=== PATIENT | male | born 1980 | race Caucasian/White ===

== ENCOUNTER 2017-11-16 07:35 | Emergency (ER) | payer OTHER ==
[~2017-11-16] VITALS: Ht 7010 cm; Wt 2.9 kg
[2017-11-16] MEDS ORDERED: Motrin,Rufen800 MG PO (09:21)
[2017-11-16] MEDS ORDERED: IBU800 MG PO (09:30)
== END 2017-11-16 09:31 | disposition home or self-care (01) ==
LOC: ED 07:35
DX: S20.212A Contusion of left front wall of thorax, initial encounter (principal); R10.30 Lower abdominal pain, unspecified; V47.5XXA Car driver injured in collision with fixed or stationary object in traffic accident, initial encounter; Y93.89 Activity, other specified; Y92.89 Other specified places as the place of occurrence of the external cause; Y99.8 Other external cause status

== ENCOUNTER → 2017-12-16 | Outpatient (CLI) | payer BC ==
[~2017-12-16] MED LIST: IBU800 MG PO; Motrin,Rufen800 MG PO
== END | disposition home or self-care (01) ==
LOC: CT 12-14 10:00
DX: S62.312A Displaced fracture of base of third metacarpal bone, right hand, initial encounter for closed fracture (principal); S62.344A Nondisplaced fracture of base of fourth metacarpal bone, right hand, initial encounter for closed fracture; X58.XXXA Exposure to other specified factors, initial encounter; Y93.89 Activity, other specified; Y92.89 Other specified places as the place of occurrence of the external cause; Y99.8 Other external cause status

== ENCOUNTER 2018-03-08 11:38 | Emergency (ER) | payer BC ==
[~2018-03-08] VITALS: Ht 187.9 cm; Wt 108.9 kg
[2018-03-08] MEDS ORDERED: CHLORZOXAZONE500 M2 PO (11:49)
[2018-03-08] MEDS ORDERED: PREDNISONE10 MG PO (11:49)
== END 2018-03-08 12:06 | disposition home or self-care (01) ==
LOC: ED 11:38
DX: S13.8XXA Sprain of joints and ligaments of other parts of neck, initial encounter (principal); R03.0 Elevated blood-pressure reading, without diagnosis of hypertension; X50.1XXA Overexertion from prolonged static or awkward postures, initial encounter; Y93.75 Activity, martial arts; Y92.89 Other specified places as the place of occurrence of the external cause; Y99.9 Unspecified external cause status

== ENCOUNTER 2018-03-18 17:51 | Emergency (ER) | payer BC ==
[~2018-03-18] VITALS: Ht 187.9 cm; Wt 108.9 kg
[~2018-03-18 17:51] MED LIST changes: +CHLORZOXAZONE500 M2 PO; +PREDNISONE10 MG PO
[2018-03-18] MEDS ORDERED: PREDNISONE10 MG PO (18:09)
[2018-03-18] MEDS ORDERED: ROBAXIN500 M1 PO (18:09)
== END 2018-03-18 18:18 | disposition home or self-care (01) ==
LOC: ED 17:51
DX: M54.12 Radiculopathy, cervical region (principal)

== ENCOUNTER 2018-11-07 12:12 | Emergency (ER) | payer SELFPAY ==
[~2018-11-07] VITALS: Ht 187.9 cm; Wt 102.1 kg
[~2018-11-07 12:12] MED LIST changes: +CYCLOBENZAPRINE10 MG PO; +MEDROL DOSEPAK4 MG PO; +ROBAXIN500 M1 PO; +TRAMADOL HCL50 MG PO
[2018-11-07] MEDS ORDERED: PERCOCET 5-3251 EACH PO (14:11)
[2018-11-07] MEDS ORDERED: CYCLOBENZAPRINE10 MG PO (14:11)
[2018-11-07] MEDS ORDERED: PREDNISONE50 MG PO (14:11)
[2018-12-01] MEDS ORDERED: Motrin,Rufen800 MG PO (09:42)
== END 2018-11-07 14:15 | disposition home or self-care (01) ==
LOC: ED 12:12
DX: S39.012A Strain of muscle, fascia and tendon of lower back, initial encounter (principal); M51.36 Other intervertebral disc degeneration, lumbar region; X50.1XXA Overexertion from prolonged static or awkward postures, initial encounter; Y93.89 Activity, other specified; Y92.89 Other specified places as the place of occurrence of the external cause; Y99.8 Other external cause status

== ENCOUNTER 2019-12-18 11:39 | Emergency (ER) | payer OTHER ==
[~2019-12-18] VITALS: Ht 187.9 cm; Wt 104.3 kg
[~2019-12-18 11:39] MED LIST changes: +PERCOCET 5-3251 EACH PO; +PREDNISONE50 MG PO
[2019-12-18] MEDS ORDERED: TYLENOL325 M1 PO (12:11)
[2019-12-18] MEDS ORDERED: VALTREX1000 MG PO (12:11)
[2019-12-18] MEDS ORDERED: TRAMADOL HCL50 MG PO (12:14)
== END 2019-12-18 12:35 | disposition home or self-care (01) ==
LOC: ED 11:39
DX: B02.9 Zoster without complications (principal); R07.89 Other chest pain

== ENCOUNTER 2020-09-06 11:49 | Emergency (ER) | payer OTHER ==
[~2020-09-06] VITALS: Ht 187.9 cm; Wt 113.4 kg
[~2020-09-06 11:49] MED LIST changes: +TYLENOL325 M1 PO; +VALTREX1000 MG PO
[2020-09-06] MEDS ORDERED: PREDNISONE50 MG PO (12:08)
[2020-09-06] MEDS ORDERED: CYCLOBENZAPRINE10 MG PO (12:08)
[2020-09-06] MEDS ORDERED: ULTRAM50 MG PO (12:08)
== END 2020-09-06 12:59 | disposition home or self-care (01) ==
LOC: ED 11:49
DX: M54.5 Low back pain (principal); M19.90 Unspecified osteoarthritis, unspecified site; Z79.899 Other long term (current) drug therapy

== ENCOUNTER 2021-03-18 06:23 | Emergency (ER) | payer OTHER ==
[~2021-03-18] VITALS: Ht 185.4 cm; Wt 106.6 kg
[~2021-03-18 06:23] MED LIST changes: +ULTRAM50 MG PO
[2021-03-18] MEDS ORDERED: NAPROXEN250 MG PO (08:28)
[2021-03-18] MEDS ORDERED: TYLENOL325 M1 PO (08:28)
== END 2021-03-18 09:39 | disposition home or self-care (01) ==
LOC: ED 06:23
DX: R51.9 Headache, unspecified (principal); Z20.822 Contact with and (suspected) exposure to COVID-19; R50.9 Fever, unspecified; J02.9 Acute pharyngitis, unspecified; R09.81 Nasal congestion; Z79.899 Other long term (current) drug therapy

== ENCOUNTER 2022-10-19 07:05 | Emergency (ER) | payer OTHER ==
[~2022-10-19] VITALS: Ht 187.9 cm; Wt 98.9 kg
[~2022-10-19 07:05] MED LIST changes: +NAPROXEN250 MG PO
[2022-10-19] MEDS ORDERED: CYCLOBENZAPRINE10 MG PO (08:33)
[2022-10-19] MEDS ORDERED: PREDNISONE20 M1 PO (08:33)
[2022-10-19] MEDS ORDERED: TRAMADOL HCL50 MG PO (08:35)
== END 2022-10-19 08:31 | disposition home or self-care (01) ==
LOC: ED 07:05
DX: M54.50 Low back pain, unspecified (principal)

== ENCOUNTER 2022-10-22 14:48 | Emergency (ER) | payer OTHER ==
[~2022-10-22] VITALS: Wt 97.5 kg
[~2022-10-22 14:48] MED LIST changes: +PREDNISONE20 M1 PO
== END 2022-10-22 21:05 | disposition home or self-care (01) ==
LOC: ED 14:48
DX: M51.36 Other intervertebral disc degeneration, lumbar region (principal); G89.29 Other chronic pain; M54.50 Low back pain, unspecified

== ENCOUNTER 2023-01-22 09:48 | Emergency (ER) | payer OTHER ==
[~2023-01-22] VITALS: Wt 97.5 kg
[2023-01-22] MEDS ORDERED: PREDNISONE50 MG PO (10:36)
[2023-01-22] MEDS ORDERED: CYCLOBENZAPRINE10 MG PO (10:36)
[2023-01-22] MEDS ORDERED: TRAMADOL HCL50 MG PO (10:36)
== END 2023-01-22 10:50 | disposition home or self-care (01) ==
LOC: ED 09:48
DX: S39.012A Strain of muscle, fascia and tendon of lower back, initial encounter (principal); Z79.899 Other long term (current) drug therapy; X58.XXXA Exposure to other specified factors, initial encounter; Y93.89 Activity, other specified; Y92.89 Other specified places as the place of occurrence of the external cause; Y99.8 Other external cause status

== ENCOUNTER 2023-03-11 14:44 | Emergency (ER) | payer OTHER ==
[~2023-03-11] VITALS: Ht 187.9 cm; Wt 99.8 kg
[2023-03-11] MEDS ORDERED: CYCLOBENZAPRINE10 MG PO (17:17)
== END 2023-03-11 17:37 | disposition home or self-care (01) ==
LOC: ED 14:44
DX: S16.1XXA Strain of muscle, fascia and tendon at neck level, initial encounter (principal); M62.838 Other muscle spasm; Z79.899 Other long term (current) drug therapy; X58.XXXA Exposure to other specified factors, initial encounter; Y93.89 Activity, other specified; Y92.89 Other specified places as the place of occurrence of the external cause; Y99.8 Other external cause status

== ENCOUNTER 2023-12-07 06:03 | Emergency (ER) | payer OTHER ==
[~2023-12-07] VITALS: Wt 102.1 kg
[2023-12-07] MEDS ORDERED: Ketorolac Tromethamine 60 MG/2 ML VIAL IM ONE (07:20)
[2023-12-07] MEDS ORDERED: NAPROSYN500 MG PO (07:30)
== END 2023-12-07 14:25 | disposition home or self-care (01) ==
LOC: ED 06:03
DX: S66.911A Strain of unspecified muscle, fascia and tendon at wrist and hand level, right hand, initial encounter (principal); W23.0XXA Caught, crushed, jammed, or pinched between moving objects, initial encounter; Y93.89 Activity, other specified; Y92.009 Unspecified place in unspecified non-institutional (private) residence as the place of occurrence of the external cause; Y99.8 Other external cause status

== ENCOUNTER 2024-04-12 08:11 | Emergency (ER) | payer OTHER ==
[~2024-04-12] VITALS: Ht 182.8 cm; Wt 90.7 kg
[~2024-04-12 08:11] MED LIST changes: +NAPROSYN500 MG PO
[2024-04-12] MEDS ORDERED: Acetaminophen/Oxycodone 5 MG/325 MG TABLET PO ONE (08:15)
[2024-04-12] MEDS ORDERED: MELOXICAM15 MG PO (08:27)
== END 2024-04-12 08:44 | disposition home or self-care (01) ==
LOC: ED 08:11
DX: S63.614A Unspecified sprain of right ring finger, initial encounter (principal); X58.XXXA Exposure to other specified factors, initial encounter; Y93.89 Activity, other specified; Y92.89 Other specified places as the place of occurrence of the external cause; Y99.8 Other external cause status

== ENCOUNTER 2024-06-21 13:04 | Emergency (ER) | payer OTHER ==
[~2024-06-21] VITALS: Ht 187.9 cm; Wt 97.5 kg
[~2024-06-21 13:04] MED LIST changes: +MELOXICAM15 MG PO
[2024-06-21] MEDS ORDERED: CYCLOBENZAPRINE5 M3 PO (13:50)
[2024-06-21] MEDS ORDERED: Ketorolac Tromethamine 30 MG/ML VIAL IM ONE (13:55)
[2024-06-21] MEDS ORDERED: methylPREDNISolone sod succ 125 MG VIAL IM ONE (13:55)
== END 2024-06-21 13:57 | disposition home or self-care (01) ==
LOC: ED 13:04
DX: M62.830 Muscle spasm of back (principal)

== ENCOUNTER 2024-10-26 13:20 | Emergency (ER) | payer MEDICAID ==
[~2024-10-26] VITALS: Ht 187.9 cm; Wt 97.5 kg
[~2024-10-26 13:20] MED LIST changes: +CYCLOBENZAPRINE5 M3 PO
[2024-10-26] MEDS ORDERED: Lidocaine Hydrochloride 2% 10 ML AMP SC ONE (13:35)
[2024-10-26] MEDS ORDERED: HYDROCODONE-AC1 EAC1 PO (13:59)
[2024-10-26] MEDS ORDERED: VIBRAMYCIN100 MG PO (13:59)
== END 2024-10-26 14:41 | disposition home or self-care (01) ==
LOC: ED 13:20
DX: L02.11 Cutaneous abscess of neck (principal); L03.221 Cellulitis of neck

== ENCOUNTER 2025-02-20 05:48 | Emergency (ER) | payer OTHER ==
[~2025-02-20] VITALS: Ht 187.9 cm; Wt 95.3 kg
[~2025-02-20 05:48] MED LIST changes: +HYDROCODONE-AC1 EAC1 PO; +VIBRA-TAB100 MG PO; +VIBRAMYCIN100 MG PO
[2025-02-20] MEDS ORDERED: TRAMADOL HCL50 MG PO (06:08)
[2025-02-20] MEDS ORDERED: PREDNISONE20 M1 PO (06:08)
[2025-02-20] MEDS ORDERED: CYCLOBENZAPRINE10 MG PO (06:08)
[2025-02-20] MEDS ORDERED: Dexamethasone Sodium Phospha 20 MG/5 ML VIAL IM ONE (06:10)
[2025-02-20] MEDS ORDERED: Cyclobenzaprine Hydrochlorid 10 MG TAB PO ONE (06:10)
== END 2025-02-20 06:17 | disposition home or self-care (01) ==
LOC: ED 05:48
DX: S39.012A Strain of muscle, fascia and tendon of lower back, initial encounter (principal); M47.816 Spondylosis without myelopathy or radiculopathy, lumbar region; Z79.899 Other long term (current) drug therapy; X58.XXXA Exposure to other specified factors, initial encounter; Y93.89 Activity, other specified; Y92.89 Other specified places as the place of occurrence of the external cause; Y99.8 Other external cause status